=== PATIENT | male | born 1990 | race Caucasian/White ===

== ENCOUNTER 2016-07-28 13:31 | Emergency (ER) | payer OTHER ==
[~2016-07-28] VITALS: Ht 170.2 cm; Wt 59.0 kg
[~2016-07-28 13:31] MED LIST: AMOX-430 PO
[2016-07-28] MEDS ORDERED: OXYC15TA2 PO (13:43)
[2016-07-28 15:19] LABS: BASOPHILS % (AUTO) 0.1 % (0.0-2.0); CALCIUM 9.1 mg/dL (8.5-10.1); CARBON DIOXIDE 29 mmol/L (21-32); CHLORIDE 103 mmol/L (98-107); EOSINOPHILS # (AUTO) 0.1 K/uL (0.0-0.7); EOSINOPHILS % (AUTO) 0.9 % (0.0-7.0); GFR 93 mL/min (>60); GLUCOSE 98 mg/dL (74-106); HEMATOCRIT 42.8 % (36.7-47.1); HEMOGLOBIN 14.9 g/dL (12.5-16.3); LYMPHOCYTES # (AUTO) 1.5 K/uL (20.0-40.0); LYMPHOCYTES % (AUTO) 11.2 % (20.5-51.5); MEAN CORPUSCULAR HEMOGLOBIN 30.2 uug (23.8-33.4); MEAN CORPUSCULAR HGB CONC 35 g/dL (32.5-36.3); MONOCYTES # (AUTO) 0.5 K/uL (2.0-10.0); MONOCYTES % (AUTO) 3.9 % (0.0-11.0); NEUTROPHILS # (AUTO) 11.2 K/uL (1.8-8.9); NEUTROPHILS % (AUTO) 83.9 % (38.5-71.5); PLATELET COUNT (AUTO) 186 K/uL (152-348); POTASSIUM 4.2 mmol/L (3.5-5.1); RED BLOOD CELL COUNT(AUTO) 4.92 MIL/uL (4.06-5.63); RED CELL DISTRIBUTION WIDTH 13.3 % (12.1-16.2); SODIUM SERUM 138 mmol/L (136-145); UREA NITROGEN, BLOOD 10 mg/dL (7-18); WHITE BLOOD COUNT (AUTO) 13.3 K/uL (3.6-10.2)
[2016-07-28 15:25] LABS: ALANINE AMINOTRANSFERASE 37 U/L (16-63); ALBUMIN 4.5 g/dL (3.4-5.0); ALKALINE PHOSPHATASE 52 U/L (50-136); ASPARTATE AMINOTRANSFERASE 45 U/L (15-37); BILIRUBIN,DIRECT 0.1 mg/dL (0.0-0.2); BILIRUBIN,TOTAL 0.5 mg/dL (0.2-1.0); TOTAL PROTEIN, SERUM 7.6 g/dL (6.4-8.2)
[2016-07-28 15:27] LABS: ACETAMINOPHEN < 2.0 ug/mL (10-30)
[2016-07-28 15:30] LABS: ETHANOL < 3 MG/DL (0-0)
--- NOTE | 2016-07-28 15:40 | NUR ---
Pt sitting on [email or web address] and playing on cell phone with no acute distress noted at this time.
[2016-07-28 15:45] LABS: BAND % (MANUAL) 9 % (0-10); LYMPHOCYTES % (MANUAL) 10 % (20-40); MONOCYTES % (MANUAL) 3 % (2-10); NEUTROPHILS % (MANUAL) 78 % (42-75)
[2016-07-28 15:46] LABS: PLATELET ESTIMATE ADEQUATE
--- NOTE | 2016-07-28 16:00 | NUR ---
Art [employer] here to danny pt.
--- NOTE | 2016-07-28 16:48 | NUR ---
Patient discharged to home in stable conditon. Written and verbal after care instructions given. Patient verbalizes understanding of instructions. Stressed follow up.
[2016-07-28 16:49] VITALS: BP 124/70
== END 2016-07-28 16:50 | disposition home or self-care (01) ==
LOC: ER 13:31
DX: T40.2X1A Poisoning by other opioids, accidental (unintentional), initial encounter (principal); F17.200 Nicotine dependence, unspecified, uncomplicated; F11.20 Opioid dependence, uncomplicated; Y92.9 Unspecified place or not applicable
CPT/HCPCS: 36415; 85025; A4663; G0480-TC; G6040-TC